=== PATIENT | female | born 1940 | race African-American/Black ===

== ENCOUNTER 2024-04-26 22:51 | Inpatient (IN) | payer OTHER, MEDICAID ==
[~2024-04-26] VITALS: Ht 167.6 cm; Wt 142.1 kg
[2024-04-26] MEDS: ASPirin 81 mg TAB PO ONE (23:00)
--- NOTE | 2024-04-26 23:20 | ED.PDOC ---
History of Present Illness HPI Comments 83-year-old female who came to ER via EMS for chest pains. Patient does have history of diabetes and [place]. Patient went to a [facility] earlier today due to hypoglycemia. Patient was managed and diagnostics were done. Noted the patient's troponin levels were elevated so patient was transferred to this institution for further evaluation management. Patient denies any chest pains at this time of care. Chief Complaint: Chest Pain Time Seen by MD: 23:19 Reviewed Notes: Radiology Specialist Notes Information Source: Patient, Emergency Med Personnel Mode of Arrival: EMS Severity: Moderate Timing: Hours Duration: Since onset Prehospital treatment: None Past Medical History PAST MEDICAL HISTORY: DM, [place] Surgical History: Denies all surgeries RESIDENCE MANAGER History: Denies all RESIDENCE MANAGER Hx Family History Family History: Reviewed,noncontributory to illness Social History Smoker: Non-Smoker Alcohol: Denies ETOH Use Drugs: Denies Drug Use Lives In: Home Constitutional: reports: weakness; denies: chills, diaphoresis, fatigue, fever, malaise, sweats, others EENTM: denies: blurred vision, double vision, ear bleeding, ear discharge, ear drainage, ear pain, ear ringing, eye pain, eye redness, hearing loss, mouth pain, mouth swelling, nasal discharge, nose bleeding, nose congestion, nose pain, photophobia, tearing, throat pain, throat swelling, voice changes, others Respiratory: denies: cough, hemoptysis, orthopnea, SOB at rest, shortness of breath, SOB with excertion, stridor, wheezing, others Cardiovascular: denies: chest pain, dizzy spells, diaphoresis, Dyspnea on exertion, edema, irregular heart beat, left arm pain, lightheadedness, palpitations, PND, syncope, others Gastrointestinal: denies: abdomen distended, abdominal pain, blood streaked bowels, constipated, diarrhea, dysphagia, difficulty swallowing, hematemesis, melena, nausea, poor appetite, poor fluid intake, rectal bleeding, rectal pain, vomiting, others Genitourinary: denies: abnormal vagina bleeding, burning, dyspareunia, dysuria, flank pain, frequency, hematuria, incontinence, pain, , vagina discharge, urgency, others Neurological: denies: dizziness, fainting, headache, left sided numbness, left sided weakness, numbness, paresthesia, pre-existing deficit, right sided numbness, right sided weakness, seizure, speech problems, tingling, tremors, weakness, others Musculoskeletal: denies: back pain, gout, joint pain, joint swelling, muscle pain, muscle stiffness, neck pain, others Integumetry: denies: bruises, change in color, change in hair/nails, dryness, laceration, lesions, lumps, rash, wounds, others Allergic/Immunocompromised: denies: Difficulty Healing, Frequent Infections, Hives, Itching, others Hematologic/Lymphatic: denies: anemia, blood clots, easy bleeding, easy bruising, swollen glands, others Endocrine: denies: excessive hunger, excessive sweating, excessive thirst, excessive urination, flushing, intolerance to cold, intolerance to heat, unexplained weight gain, unexplained weight loss, others Psychiatric: denies: anxiety, bipolar disorder, depression, hopeless, panic disorder, schizophrenia, sleepless, suicidal, others Physical Exam General Appearance: No Apparent Distress, Normal HEENT: Normal ENT Inspection, Pharynx Normal, TMs Normal Neck: Full Range of Motion, Non-Tender, Normal, Normal Inspection Respiratory: Chest Non-Tender, Lungs Clear, No Accessory Muscle Use, No Respiratory Distress, Normal Breath Sounds Cardiovascular: No Edema, No JVD, No Murmur, No Gallop, Normal Peripheral Pulses, Regular Rate/Rhythm Breast Exam: Deferred Gastrointestinal: No Organomegaly, Non Tender, No Pulsatile Mass, Normal Bowel Sounds, Soft Genitalia: Deferred Pelvic: Deferred Rectal: Deferred Extremities: No calf tenderness, Normal capillary refill, Normal inspection, Normal range of motion, Non-tender, No pedal edema Musculoskeletal : Apperance: Normal Neurologic: Alert, research staff member II-XII nml as Tested, No Motor Deficits, Normal Affect, Normal Mood, No Sensory Deficits Cerebellar Function: Normal Reflexes: Normal Skin: Dry, Normal Color, Warm Lymphatic: No Adenopathy Was a procedure done? Was a procedure done?: No EKG EKG : Pulse Rate (adult): 54 Hypertrophy: LVH Comments Prolonged QT interval Differential Dx Considerations may include: Anemia, electrolyte imbalance, NSTEMI, hypoglycemia X-Ray, Labs, Meds, VS Vital Signs Date Time Temp Pulse Resp B/P (MAP) Pulse Ox O2 Delivery O2 Flow Rate FiO2 04/26/24 23:53 98.8 50 15 156/34 (74) 93 98.8 04/26/24 23:20 54 04/26/24 22:51 54 04/26/24 22:51 98.6 54 16 162/80 (107) 92 Lab Test 04/26/24 23:25 Range/Units White Blood Count 3.5 L 4.4-10.8 10^3/uL Red Blood Count 3.05 L 4.0-5.20 10^6/uL Hemoglobin 11.0 L 12.2-16.2 g/dL Hematocrit 32.4 L 36.0-46.0 % Mean Corpuscular Volume 106.5 H 80.0-100.0 fL Mean Corpuscular Hemoglobin 36.1 H 28.0-32.0 pg Mean Corpuscular Hemoglobin Concent 33.9 32.0-36.0 g/dL Red Cell Distribution Width 22.7 H 11.8-14.3 % Platelet Count 145 140-450 10^3/uL Mean Platelet Volume 7.5 6.9-10.8 fL Neutrophils (%) (Auto) 57.3 37.0-80.0 % Lymphocytes (%) (Auto) 35.2 10.0-50.0 % Monocytes (%) (Auto) 5.9 0.0-12.0 % Eosinophils (%) (Auto) 1.2 0.0-7.0 % Basophils (%) (Auto) 0.4 0.0-2.0 % Neutrophils # (Auto) 2.0 1.6-8.6 10 ^3/uL Lymphocytes # (Auto) 1.2 0.4-5.4 10 ^3/uL Monocytes # (Auto) 0.2 0-1.3 10 ^3/uL Eosinophils # (Auto) 0 0-0.8 10 ^3/uL Basophils # (Auto) 0 0-0.2 10 ^3/uL Nucleated Red Blood Cells 0.8 % Prothrombin Time 11.3 9.3-11.8 sec Prothrombin Time INR 1.07 0.9-1.15 Activated Partial Thromboplast Time 28.3 24.5-34.5 SEC Sodium Level 145 136-145 mmol/L Potassium Level 3.2 L 3.5-5.1 mmol/L Chloride Level 110 H 98-107 mmol/L Carbon Dioxide Level 24 20-31 mmol/L Anion Gap 11 5-15 Blood Urea Nitrogen 13 9-23 mg/dL Creatinine 1.22 H 0.550-1.02 mg/dL Glomerular Filtration Rate Calc 44 >90 mL/min BUN/Creatinine Ratio 10.7 10.0-20.0 Serum Glucose 58 L 74-106 mg/dL Calcium Level 10.0 8.7-10.4 mg/dL Total Bilirubin 0.8 0.2-1.0 mg/dL Aspartate Amino Transferase (AST) 16 13-40 U/L Alanine Aminotransferase (ALT) 17 7-40 U/L Alkaline Phosphatase 64 46-116 U/L Troponin I High Sensitivity 124 *H </=34 ng/L B-Type Natriuretic Peptide Pending Total Protein 6.8 5.7-8.2 g/dL Albumin 4.2 3.2-4.8 g/dL Time of 1ST Reevaluation: 23:15 Reevaluation 1ST: Unchanged Time of 2ND Reevaluation: 00:14 Reevaluation 2ND: Unchanged Patient Education/Counseling: Diagnosis, Treatment Family Education/Counseling: No Family Present Departure 1 Departure Time of Disposition: 00:14 Impression: Primary Impression: Acute coronary syndrome Additional Impression: Type 2 diabetes mellitus with hypoglycemia Disposition: ADMITTED INPATIENT Admit to: Tele Condition: Guarded Critical Care Note Critical Care Time?: Yes (35 min-critical care time only) Critical care comment: Total critical care time: Approximately 36 minutes Due to a high probability of clinically significant, life threatening deterioration, the patient required my highest level of preparedness to intervene emergently and I personally spent this critical care time directly and personally managing the patient. This critical care time included obtaining a history; examining the patient; pulse oximetry; ordering and review of studies; arranging urgent treatment with development of a management plan; evaluation of patient's response to treatment; frequent reassessment; and, discussions with other providers. This critical care time was performed to assess and manage the high probability of imminent, life-threatening deterioration that could result in multi-organ failure. It was exclusive of separately billable procedures and treating other patients. Stability Stability form required: No Heart Score Heart Score: Heart Score Response (Comments) Value History Moderate Suspicious 1 EKG Repolarization Disturb 1 Age >65 2 Risk Factors >3 or Hx ASHD 2 Troponin 1-2 x's Normal limit 1 Total 7 I personally scribed for JENNIFER MOODY MD ([email or web address]) on 04/26/24 at 23:20. Electronically submitted by Junior Fermin ([email or web address]). JENNIFER MOODY MD Apr 26, 2024 23:20
[2024-04-26 23:31] LABS: Basophils # (auto) 0 10 ^3/uL (0-0.2); Eosinophils # (auto) 0 10 ^3/uL (0-0.8); Monocytes # (auto) 0.2 10 ^3/uL (0-1.3)
--- NOTE | 2024-04-26 23:33 | ECG ---
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
[2024-04-26 23:34] LABS: Basophils % (auto) 0.4 % (0.0-2.0); Eosinophils % (auto) 1.2 % (0.0-7.0); Hematocrit 32.4 % (36.0-46.0); Lymphocytes # (auto) 1.2 10 ^3/uL (0.4-5.4); Lymphocytes % (auto) 35.2 % (10.0-50.0); Mean Corpuscular Hemoglobin 36.1 pg (28.0-32.0); Mean Corpuscular Hgb Conc. 33.9 g/dL (32.0-36.0); Mean Corpuscular Volume 106.5 fL (80.0-100.0); Monocytes % (auto) 5.9 % (0.0-12.0); Neutrophils % (auto) 57.3 % (37.0-80.0); Nucleated Red Blood Cells % 0.8 %; Platelet Count (auto) 145 10^3/uL (140-450); Red Blood Cells 3.05 10^6/uL (4.0-5.20); Red Cell Distribution Width 22.7 % (11.8-14.3); White Blood Cell 3.5 10^3/uL (4.4-10.8)
[2024-04-26 23:47] LABS: INR 1.07 (0.9-1.15); Partial Thromboplastin Time 28.3 SEC (24.5-34.5); Prothrombin Time 11.3 sec (9.3-11.8)
[2024-04-26 23:50] LABS: Alanine Aminotransferase 17 U/L (7-40); Albumin 4.2 g/dL (3.2-4.8); Alkaline Phosphatase 64 U/L (46-116); Anion Gap 11 (5-15); Aspartate Aminotransferase 16 U/L (13-40); Bilirubin, Total 0.8 mg/dL (0.2-1.0); Carbon Dioxide 24 mmol/L (20-31); Total Protein 6.8 g/dL (5.7-8.2)
[2024-04-26 23:54] LABS: Chloride 110 mmol/L (98-107); Glucose 58 mg/dL (74-106); Potassium 3.2 mmol/L (3.5-5.1); Sodium 145 mmol/L (136-145)
--- NOTE | 2024-04-26 23:59 | DVH ---
CHEST RADIOGRAPH Indication: weakness Technique: Single frontal view of the chest was obtained Comparison: None Findings/ IMPRESSION: Low lung volumes with bronchovascular crowding. Findings may also be suggestive of mild pulmonary alexis ma. No pneumothorax. No pleural effusions.
[2024-04-27 00:03] LABS: BUN/Creatinine Ratio 10.7 (10.0-20.0); Blood Urea Nitrogen 13 mg/dL (9-23)
[2024-04-27 01:40] VITALS: PULSE 50; RESP 15; O2SAT 91
--- NOTE | 2024-04-27 04:29 | DVHHP2 ---
History of Present Illness Reason for Visit: Hypoglycemia History of Present Illness 83-year-old female presented to outside facility with complaints of hypoglycemia and altered mental status. On arrival patient was noted to be hypoglycemic in the 40s in the heart rate in the 40s as well. Patient reports heart rate being in the 40s for the past one-week. She associates symptoms of mild dizziness and shortness for breath. Denies any chest pain. No nausea or vomiting. No other acute complaints reported. Past Medical History CVA, diabetes mellitus, cancer, congestive heart failure and CA Past Surgical History None Family History Noncontributory Smoke: No ALCOHOL: none Drugs: None Lives: with Family Review of Systems Review of Systems Review of systems are currently negative otherwise addressed in HPI. Exam Vital Signs Vital Signs Date Time Temp Pulse Resp B/P (MAP) Pulse Ox O2 Delivery O2 Flow Rate FiO2 04/27/24 03:01 48 17 167/53 (91) 97 04/27/24 01:40 Nasal Cannula* 2 28 04/26/24 23:53 98.8 98.8 Exam Gen: 83-year-old female in mild distress Skin: Warm, dry, normal color and texture, no rash. HEENT: Normocephalic atraumatic, mucous membranes moist and pink. Neck: Cervical and supraclavicular nodes normal without enlargement, trachea is midline, thyroid gland is normal without masses. Pulmonary: Clear to auscultation and percussion bilaterally. Cardiac: Sinus bradycardia Abdomen: Soft, nontender, nondistended, bowel sounds present all 4 quadrants, no guarding, no rigidity, no organomegaly. Extremities: No cyanosis, clubbing, no edema Neuro: Cranial nerves II through XII grossly intact, normal affect and speech, no focal motor deficits. Labs/Xrays ORDERING PHYSICIAN: JENNIFER MOODY MD PROCEDURE(s): CXRP - CHEST PORTABLE REASON: weakness ORDER NUMBER(s): [id number], ACCESSION NUMBER(s): [id number] CHEST RADIOGRAPH Indication: weakness Technique: Single frontal view of the chest was obtained Comparison: None Findings/ IMPRESSION: Low lung volumes with bronchovascular crowding. Findings may also be suggestive of mild pulmonary edema. No pneumothorax. No pleural effusions. Labs Test 04/27/24 02:23 04/26/24 23:25 Range/Units Troponin I High Sensitivity 113 *H </=34 ng/L White Blood Count 3.5 L 4.4-10.8 10^3/uL Red Blood Count 3.05 L 4.0-5.20 10^6/uL Hemoglobin 11.0 L 12.2-16.2 g/dL Hematocrit 32.4 L 36.0-46.0 % Mean Corpuscular Volume 106.5 H 80.0-100.0 fL Mean Corpuscular Hemoglobin 36.1 H 28.0-32.0 pg Mean Corpuscular Hemoglobin Concent 33.9 32.0-36.0 g/dL Red Cell Distribution Width 22.7 H 11.8-14.3 % Platelet Count 145 140-450 10^3/uL Mean Platelet Volume 7.5 6.9-10.8 fL Neutrophils (%) (Auto) 57.3 37.0-80.0 % Lymphocytes (%) (Auto) 35.2 10.0-50.0 % Monocytes (%) (Auto) 5.9 0.0-12.0 % Eosinophils (%) (Auto) 1.2 0.0-7.0 % Basophils (%) (Auto) 0.4 0.0-2.0 % Neutrophils # (Auto) 2.0 1.6-8.6 10 ^3/uL Lymphocytes # (Auto) 1.2 0.4-5.4 10 ^3/uL Monocytes # (Auto) 0.2 0-1.3 10 ^3/uL Eosinophils # (Auto) 0 0-0.8 10 ^3/uL Basophils # (Auto) 0 0-0.2 10 ^3/uL Nucleated Red Blood Cells 0.8 % Prothrombin Time 11.3 9.3-11.8 sec Prothrombin Time INR 1.07 0.9-1.15 Activated Partial Thromboplast Time 28.3 24.5-34.5 SEC Sodium Level 145 136-145 mmol/L Potassium Level 3.2 L 3.5-5.1 mmol/L Chloride Level 110 H 98-107 mmol/L Carbon Dioxide Level 24 20-31 mmol/L Anion Gap 11 5-15 Blood Urea Nitrogen 13 9-23 mg/dL Creatinine 1.22 H 0.550-1.02 mg/dL Glomerular Filtration Rate Calc 44 >90 mL/min BUN/Creatinine Ratio 10.7 10.0-20.0 Serum Glucose 58 L 74-106 mg/dL Calcium Level 10.0 8.7-10.4 mg/dL Total Bilirubin 0.8 0.2-1.0 mg/dL Aspartate Amino Transferase (AST) 16 13-40 U/L Alanine Aminotransferase (ALT) 17 7-40 U/L Alkaline Phosphatase 64 46-116 U/L B-Type Natriuretic Peptide 399.84 0-100 pg/mL Total Protein 6.8 5.7-8.2 g/dL Albumin 4.2 3.2-4.8 g/dL Assessment/Plan Assessment/Plan Assessment Metabolic encephalopathy Hypoglycemia Bradycardia CHF Plan Admit the patient to telemetry to the hospitalist Cardiology consultation Echocardiogram pending Resume home medications Continue treatment per orders Plan discussed with: Patient My Orders Orders - GINA ERVIN M AGACNP Procedure Category Date Status Time Glucagon PHA 04/27/24 Transmitted Hydrochloride (Rdna) 04:30 Losartan Tablet PHA 04/27/24 Transmitted (Cozaar Tablet) 10:00 Amlodipine Tablet PHA 04/27/24 Transmitted (Norvasc Tablet) 10:00 Furosemide Tablet PHA 04/27/24 Transmitted (Lasix Tablet) 10:00 Atorvastatin (Lipitor) PHA 04/27/24 Transmitted 22:00 * Cardiology Consult CONS 04/27/24 Transmitted 04:18 Basic Metabolic Panel LAB 04/28/24 Verified 04:00 Consistent DIET 04/27/24 Transmitted Carb(Ccho)Diabetes Breakfast Glucose Blood PHA 04/27/24 Transmitted (Accu-Chek Comfort 08:00 Mild Sliding Scale PHA 04/27/24 Transmitted 08:00 Dextrose 50% Syringe PHA 04/27/24 Transmitted 04:30 Admit ADMIT 04/27/24 Transmitted 04:18 Ondansetron Hcl PHA 04/27/24 Transmitted (Zofran) 04:30 Enoxaparin Sodium PHA 04/27/24 Transmitted (Lovenox) 10:00 Echo 2d Mode Cardiac US 04/27/24 Transmitted DOP 04:18 Condition: Fair MIRZA 04/27/24 Transmitted 04:18 Acetaminophen Tablet PHA 04/27/24 Transmitted (Tylenol Tablet) 04:30 Bedrest With Bathroom MIRZA 04/27/24 Transmitted Privileg 04:18 Nitroglycerin PHA 04/27/24 Transmitted Sublingual (Ntrostat 04:30 Morphine Sulfate [facility] 04/27/24 Transmitted Injection 04:30 Stat Ekg For Chest [facility] 04/27/24 Transmitted Pain 04:18 Notify Md Of Changes [facility] 04/27/24 Transmitted From Base 04:18 Electronic Page Makeup System Operator For [facility] 04/27/24 Transmitted 24 Hours 04:18 Emergency Dysrhythmia [facility] 04/27/24 Transmitted Protocol 04:18 Rhythm Strips Once [facility] 04/27/24 Transmitted Every Shift 04:18 Oxygen By Nasal RT 04/27/24 Transmitted Cannula 04:18 Potassium Er Tablet [facility] 04/27/24 Transmitted (Klor-Con Tablet) 04:30 Aspirin Tablet [facility] 04/27/24 Transmitted 10:00 Date of Service: Apr 27, 2024 Billing Provider: GINA ERVIN Common Visit Codes: [id number] INP/OBS CARE (HIGH) GINA ERVIN Apr 27, 2024 04:29
[2024-04-27] MEDS: GLUCAGON EMERG KIT 1mg/1ml IV ONE (04:30)
[2024-04-27] MEDS ORDERED: DEXTROSE (50%) 50ML SYRG IV PRN (04:30)
[2024-04-27] MEDS ORDERED: NITROGLYCERIN 0.4 MG SL TAB SL PRN (04:30)
[2024-04-27] MEDS ORDERED: MORPHINE SULFATE INJ 2 MG/ml SYRG IV PRN (04:30)
[2024-04-27] MEDS ORDERED: ACETAMINOPHEN 325 MG TAB PO PRN (04:30)
[2024-04-27] MEDS: InsuLIN REG 1unit/0.01ml Soln (100units/ml) SC SCH (08:00)
[2024-04-27 09:45] LABS: Basophils # (auto) 0 10 ^3/uL (0-0.2); Eosinophils # (auto) 0 10 ^3/uL (0-0.8); Hematocrit 29.8 % (36.0-46.0); Lymphocytes # (auto) 0.8 10 ^3/uL (0.4-5.4); Monocytes # (auto) 0.2 10 ^3/uL (0-1.3); Neutrophils # (auto) 1.5 10 ^3/uL (1.6-8.6); White Blood Cell 2.5 10^3/uL (4.4-10.8)
[2024-04-27 09:47] LABS: Basophils % (auto) 0.6 % (0.0-2.0); Eosinophils % (auto) 1.6 % (0.0-7.0); Lymphocytes % (auto) 31.9 % (10.0-50.0); Mean Corpuscular Hemoglobin 36.1 pg (28.0-32.0); Mean Corpuscular Hgb Conc. 33.7 g/dL (32.0-36.0); Mean Corpuscular Volume 107.1 fL (80.0-100.0); Monocytes % (auto) 7.7 % (0.0-12.0); Neutrophils % (auto) 58.2 % (37.0-80.0); Nucleated Red Blood Cells % 1.1 %; Platelet Count (auto) 136 10^3/uL (140-450); Red Blood Cells 2.79 10^6/uL (4.0-5.20); Red Cell Distribution Width 22.3 % (11.8-14.3)
[2024-04-27 09:59] VITALS: BP 112/82; PULSE 53; RESP 19; TEMP 98.3; O2SAT 96
[2024-04-27] MEDS ORDERED: ASPirin 81 mg TAB PO SCH (10:00)
[2024-04-27 10:02] LABS: Sodium 143 mmol/L (136-145)
[2024-04-27 10:03] LABS: Anion Gap 8 (5-15); Calcium 9.8 mg/dL (8.7-10.4); Carbon Dioxide 25 mmol/L (20-31)
[2024-04-27 10:08] LABS: BUN/Creatinine Ratio 6.3 (10.0-20.0); Glucose 76 mg/dL (74-106)
[2024-04-27 10:09] LABS: Magnesium 2.1 mg/dL (1.6-2.6)
[2024-04-27 10:27] LABS: Blood Urea Nitrogen 7 mg/dL (9-23); Chloride 110 mmol/L (98-107)
[2024-04-27] MEDS: ACCU-CHEK COMFORT CURVE STRIP VI SCH (10:46)
[2024-04-27] MEDS: POTASSIUM CHL 20 Meq TABLET PO ONE (10:55)
[2024-04-27] MEDS: amLODIPine BESYLATE 5 MG TAB PO SCH (10:57)
[2024-04-27] MEDS: FUROSEMIDE 20 MG TAB PO SCH (10:57)
[2024-04-27] MEDS: ENOXAPARIN SOD 40 MG/0.4 ML SYRINGE SC SCH (10:59)
[2024-04-27] MEDS: LOSARTAN POTASSIUM 50 MG TAB PO SCH (10:59)
[2024-04-27 11:15] LABS: LDL Cholesterol 42 mg/dL (< 100); Triglycerides 73 mg/dL (< 150)
[2024-04-27 11:16] LABS: Cholesterol 94 mg/dL (< 200)
[2024-04-27 11:47] LABS: HDL Cholesterol 32 mg/dL (40-59)
--- NOTE | 2024-04-27 12:28 | DVHCONRES ---
Date Seen: Apr 27, 2024 Resident Creating Document: ALEXUSVIDAL RESIDENT Reason for Consultation Bradycardia History of Present Illness AZ ISAAC, is a 83-year-old female with a PMH of CVA, type 2 DM, CHF, CAD, PTCA x1 ILYA transferred from [facility] to ED with the chief complaints of hypoglycemia and altered mental status. Patient is poor historian, her granddaughter reported yesterday patient has been very dizzy, altered, checked glucose level showed 40s and patient does reported shortness of breath. On my assessment patient denies fever, nausea, vomiting, chest pain, diarrhea, diaphoresis and other acute associated symptoms. Patient does have a history of CHF since many years. Past Medical History CVA, type 2 DM, CHF, CAD, PTCA x1 ILYA Past Surgical History PTCA Family History Reviewed, noncontributory Social History Lives with a granddaughter. Denies smoking, alcohol and other drug abuse Allergies: Coded Allergies: Aspirin (Verified Allergy, Unknown, 04/27/24) Codeine (Verified Allergy, Unknown, 04/27/24) Sulfa Antibiotics (Verified Allergy, Unknown, 04/27/24) Current Medications Current Medications Medications (Trade) Dose Ordered Sig/Bree Route PRN Reason Start Time Stop Time Status Last Admin Losartan Potassium (Cozaar Tablet) 50 mg DAILY PO 04/27/24 10:00 04/27/24 10:59 Amlodipine Besylate (Norvasc Tablet) 10 mg DAILY PO 04/27/24 10:00 04/27/24 10:57 Furosemide (Lasix Tablet) 20 mg DAILY PO 04/27/24 10:00 04/27/24 10:57 Atorvastatin Calcium (Lipitor) 80 mg HS PO 04/27/24 22:00 Diagnostic Test (Pha) (Accu-Chek Comfort Curve T) 1 strip IQ4HR 04/27/24 08:00 04/27/24 10:46 Insulin Human Regular (InsuLIN R) IQ4HR SC 04/27/24 08:00 Dextrose 50 ml UD PRN IV Blood Sugar LESS THAN 60 04/27/24 04:30 Ondansetron HCl (Zofran) 4 mg Q4HP PRN IV NAUSEA / VOMITING 04/27/24 04:30 Enoxaparin Sodium (Lovenox) 40 mg DAILY SC 04/27/24 10:00 04/27/24 10:59 Acetaminophen (Tylenol Tablet) 650 mg Q6HP PRN PO PAIN SCALE 1-3 OR TEMP>100.4 04/27/24 04:30 Nitroglycerin (Ntrostat Sublingual) 0.4 mg Q5MINP PRN SL FOR CHEST PAIN 04/27/24 04:30 Morphine Sulfate 2 mg Q30M PRN IV FOR CHEST PAIN 04/27/24 04:30 Aspirin 162 mg DAILY PO 04/27/24 10:00 UNV Review of Systems Patient seen and examined at the bedside. Reported no active complaints currently on 4 L oxygen NC. Vital Signs Vital Signs Date Time Temp Pulse Resp B/P (MAP) Pulse Ox O2 Delivery O2 Flow Rate FiO2 04/27/24 10:59 112/82 04/27/24 09:59 Nasal Cannula* 2 28 04/27/24 08:00 47 04/27/24 06:00 14 95 04/26/24 23:53 98.8 98.8 Physical Exam Pt is lying on bed General Appearance: Alert, Oriented X3, Cooperative, mpderate distress HEENT: Atraumatic, Mucous membranes moist/pink Respiratory: Clear to auscultation, Normal air movement, crackles Cardiovascular: Regular rate, Normal S1, Normal S2, No murmurs Abdominal: Active bowel sounds, Soft, no distention, no tenderness Extremities: 1+ edema, Normal pulses, No tenderness/swelling Skin: No Significant rash, except past surgical scars Neuro: Normal speech, sensorimotor deficits none Psych/Mental Status: Mental status NL, Mood NL Labs/Diagnostic Data Labs Test 04/27/24 10:43 04/27/24 09:30 04/27/24 02:23 04/26/24 23:25 Range/Units POC Glucose 105 70-106 mg/dl White Blood Count 2.5 L 4.4-10.8 10^3/uL Red Blood Count 2.79 L 4.0-5.20 10^6/uL Hemoglobin 10.0 L 12.2-16.2 g/dL Hematocrit 29.8 L 36.0-46.0 % Mean Corpuscular Volume 107.1 H 80.0-100.0 fL Mean Corpuscular Hemoglobin 36.1 H 28.0-32.0 pg Mean Corpuscular Hemoglobin Concent 33.7 32.0-36.0 g/dL Red Cell Distribution Width 22.3 H 11.8-14.3 % Platelet Count 136 L 140-450 10^3/uL Mean Platelet Volume 7.3 6.9-10.8 fL Neutrophils (%) (Auto) 58.2 37.0-80.0 % Lymphocytes (%) (Auto) 31.9 10.0-50.0 % Monocytes (%) (Auto) 7.7 0.0-12.0 % Eosinophils (%) (Auto) 1.6 0.0-7.0 % Basophils (%) (Auto) 0.6 0.0-2.0 % Neutrophils # (Auto) 1.5 L 1.6-8.6 10 ^3/uL Lymphocytes # (Auto) 0.8 0.4-5.4 10 ^3/uL Monocytes # (Auto) 0.2 0-1.3 10 ^3/uL Eosinophils # (Auto) 0 0-0.8 10 ^3/uL Basophils # (Auto) 0 0-0.2 10 ^3/uL Nucleated Red Blood Cells 1.1 % Sodium Level 143 136-145 mmol/L Potassium Level 3.0 L 3.5-5.1 mmol/L Chloride Level 110 H 98-107 mmol/L Carbon Dioxide Level 25 20-31 mmol/L Anion Gap 8 5-15 Blood Urea Nitrogen 7 L 9-23 mg/dL Creatinine 1.11 H 0.550-1.02 mg/dL Glomerular Filtration Rate Calc 49 >90 mL/min BUN/Creatinine Ratio 6.3 L 10.0-20.0 Serum Glucose 76 74-106 mg/dL Hemoglobin A1c 5.8 H <5.7 % A1C Lactic Acid Level 1.2 0.4-2.0 mmol/L Calcium Level 9.8 8.7-10.4 mg/dL Magnesium Level 2.1 1.6-2.6 mg/dL Triglycerides Level 73 < 150 mg/dL Cholesterol Level 94 < 200 mg/dL LDL Cholesterol 42 < 100 mg/dL HDL Cholesterol 32 L 40-59 mg/dL Thyroid Stimulating Hormone (TSH) 2.31 0.55-4.78 uIU/mL Troponin I High Sensitivity 113 *H </=34 ng/L Prothrombin Time 11.3 9.3-11.8 sec Prothrombin Time INR 1.07 0.9-1.15 Activated Partial Thromboplast Time 28.3 24.5-34.5 SEC Total Bilirubin 0.8 0.2-1.0 mg/dL Aspartate Amino Transferase (AST) 16 13-40 U/L Alanine Aminotransferase (ALT) 17 7-40 U/L Alkaline Phosphatase 64 46-116 U/L B-Type Natriuretic Peptide 399.84 0-100 pg/mL Total Protein 6.8 5.7-8.2 g/dL Albumin 4.2 3.2-4.8 g/dL Assessment Asymptomatic sinus bradycardia To rule out structural heart disease Uncontrolled hypertension Acute hypoxic respiratory failure unspecified NSTEMI type 2 likely due to above Hypokalemia Metabolic encephalopathy Hypoglycemia Morbid obesity Plan/Recommendation We will continue with the following plan/recommendations (Dr. Theodore): Continue telemetry monitoring No significant AV block or pauses noted on EKG Avoid AV jose blockers Correct electrolyte imbalance Echocardiogram to evaluate cardiac function Lasix 40 mg IV b.i.d. Lipid lowering agent BP control measures DVT prophylaxis, Lovenox for now Aggressive risk factor modification Discussed with Dr. Chung, Plan discussed with: Patient Visit Coding Cardiology RES Date of Service: Apr 27, 2024 Billing Provider: GIFTY CHUNG MD Cardiology Common Codes: [id number] INP/OBS CARE (Mod) VIDAL VAUGHAN RESIDENT Apr 27, 2024 12:28
[2024-04-27 13:00] VITALS: BP 112/82; PULSE 79; RESP 17; TEMP 97.7; O2SAT 96
[2024-04-27] MEDS ORDERED: AZITHROMYCIN 500MG/ 250ML 250 ML IV ONE (13:15)
--- NOTE | 2024-04-27 14:24 | ECG ---
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
[2024-04-27] MEDS: FUROSEMIDE 100 MG/10ML VIAL IV ONE (15:10)
[2024-04-27] MEDS: MAALOX PLUS or MAALOX 30 ML PO ONE (15:10)
[2024-04-27] MEDS: cefTRIAXone 1GM/50ML D5W 50 ML IV ONE (15:10)
[2024-04-27] MEDS: METOCLOPRAMIDE HCL 5MG/ml INJ 2ml VIAL IV ONE (15:10)
[2024-04-27 15:47] LABS: Potassium 4.7 mmol/L (3.5-5.1); Sodium 143 mmol/L (136-145)
[2024-04-27 15:48] LABS: Anion Gap 5 (5-15); Calcium 10.2 mg/dL (8.7-10.4); Carbon Dioxide 27 mmol/L (20-31)
[2024-04-27 15:53] LABS: BUN/Creatinine Ratio 6.7 (10.0-20.0)
[2024-04-27 15:54] LABS: Blood Urea Nitrogen 7 mg/dL (9-23); Chloride 111 mmol/L (98-107); Glucose 109 mg/dL (74-106)
[2024-04-27 16:45] VITALS: BP 120/80; PULSE 72; RESP 19; TEMP 97.7; O2SAT 94
[2024-04-27] MEDS ORDERED: LEVO500T91 PO (17:14)
[2024-04-27] MEDS ORDERED: ZOFR4T PO (17:14)
--- NOTE | 2024-04-27 17:20 | DVHDS2 ---
Discharge Summary Date of Admission Apr 27, 2024 at 04:18 Date of Discharge: Apr 27, 2024 Labs/Diagnostic Data: Laboratory Results Test 04/27/24 16:54 04/27/24 15:00 04/27/24 09:30 04/27/24 02:23 POC Glucose 113 mg/dl (70-106) Sodium Level 143 mmol/L (136-145) Potassium Level 4.7 mmol/L (3.5-5.1) Chloride Level 111 mmol/L (98-107) Carbon Dioxide Level 27 mmol/L (20-31) Anion Gap 5 (5-15) Blood Urea Nitrogen 7 mg/dL (9-23) Creatinine 1.04 mg/dL (0.550-1.02) Glomerular Filtration Rate Calc 53 mL/min (>90) BUN/Creatinine Ratio 6.7 (10.0-20.0) Serum Glucose 109 mg/dL (74-106) Calcium Level 10.2 mg/dL (8.7-10.4) White Blood Count 2.5 10^3/uL (4.4-10.8) Red Blood Count 2.79 10^6/uL (4.0-5.20) Hemoglobin 10.0 g/dL (12.2-16.2) Hematocrit 29.8 % (36.0-46.0) Mean Corpuscular Volume 107.1 fL (80.0-100.0) Mean Corpuscular Hemoglobin 36.1 pg (28.0-32.0) Mean Corpuscular Hemoglobin Concent 33.7 g/dL (32.0-36.0) Red Cell Distribution Width 22.3 % (11.8-14.3) Platelet Count 136 10^3/uL (140-450) Mean Platelet Volume 7.3 fL (6.9-10.8) Neutrophils (%) (Auto) 58.2 % (37.0-80.0) Lymphocytes (%) (Auto) 31.9 % (10.0-50.0) Monocytes (%) (Auto) 7.7 % (0.0-12.0) Eosinophils (%) (Auto) 1.6 % (0.0-7.0) Basophils (%) (Auto) 0.6 % (0.0-2.0) Neutrophils # (Auto) 1.5 10 ^3/uL (1.6-8.6) Lymphocytes # (Auto) 0.8 10 ^3/uL (0.4-5.4) Monocytes # (Auto) 0.2 10 ^3/uL (0-1.3) Eosinophils # (Auto) 0 10 ^3/uL (0-0.8) Basophils # (Auto) 0 10 ^3/uL (0-0.2) Nucleated Red Blood Cells 1.1 % Hemoglobin A1c 5.8 % A1C (<5.7) Lactic Acid Level 1.2 mmol/L (0.4-2.0) Magnesium Level 2.1 mg/dL (1.6-2.6) Triglycerides Level 73 mg/dL (< 150) Cholesterol Level 94 mg/dL (< 200) LDL Cholesterol 42 mg/dL (< 100) HDL Cholesterol 32 mg/dL (40-59) Thyroid Stimulating Hormone (TSH) 2.31 uIU/mL (0.55-4.78) Troponin I High Sensitivity 113 ng/L (</=34) Test 04/26/24 23:25 Prothrombin Time 11.3 sec (9.3-11.8) Prothrombin Time INR 1.07 (0.9-1.15) Activated Partial Thromboplast Time 28.3 SEC (24.5-34.5) Total Bilirubin 0.8 mg/dL (0.2-1.0) Aspartate Amino Transferase (AST) 16 U/L (13-40) Alanine Aminotransferase (ALT) 17 U/L (7-40) Alkaline Phosphatase 64 U/L (46-116) B-Type Natriuretic Peptide 399.84 pg/mL (0-100) Total Protein 6.8 g/dL (5.7-8.2) Albumin 4.2 g/dL (3.2-4.8) Other Laboratory Tests 04/27/24 15:00 04/27/24 09:30 Brief Hx & Hospital Course: HPI: 83-year-old female with a PMH of CVA, type 2 DM, CHF, CAD, PTCA x1 [facility] transferred from [facility] to ED with the chief complaints of hypoglycemia and altered mental status. Patient is poor historian, her granddaughter reported yesterday patient has been very dizzy, altered, checked glucose level showed 40s. ROS include dizziness, orthostasis, nausea, decreased PO tolerance (but still taking medications), cough, sore throat, SOB, orthopnea and [place]. Hospital course: patient initially went to [facility] via EMS for AMS, called by granddaughter, found to be hypoglycemic. Initial workup showed hyperglycemia elevated troponins for which patient was transferred to [facility]. In ED, she was noted to be bradycardic in 50s but vitals signs stable, patient endorses that she normally runs at rate of 50s to 60s at her baseline. Also in acute hypoxic respiratory failure requiring up to 4 L nasal cannula oxygen (patient is on home O2 2 L but it has only been using it p.r.n. for shortness of breath). Patient is given dextrose from transferring facility and EMS. Glucose stable on presentation, and hypoglycemia is likely from sulfonylurea adverse effect, hypoglycemic medications held (A1c is 5.8). Patient has stable trend of elevated troponins in 110s. CXR shows pulmonary vascular congestion. BNP elevated at 400. Patient has sinus bradycardia, EKG shows sinus bradycardia with QT prolongation and possible LVH. Echo done shows EF 70%, mild dilation of RV and RA, moderate PH RVSP 50 mmHg. Patient has rales and trace pitting edema, concern for acute on chronic diastolic heart failure and diuresis initiated. There is also leukopenia and symptoms of cough with chills is concerning for pneumonia, antibiotics started with ceftriaxone but avoiding azithromycin due to QT prolongation. Initial concern for ACS in ED, which is ruled out given patient has minimal chest pain, EKG without concerning signs, troponins plateau NSTEMI type 2 from CHF versus pneumonia. Placed on tele to monitor ST changes. Cardiology consulted, we are concern is for hypoxia and volume overload, no significant concern for bradycardia as it is asymptomatic but plan to hold beta- blockers and discharge. COVID/flu rapid are negative. Elevated creatinine 1.2 on admit, likely CONSTANTINE cardiorenal, patient diuresed and creatinine improves towards normal limits. Patient has bloating and GERD symptoms, trial of Reglan and Maalox improves pain, can try Zofran here after. Hypokalemia repleted with p.o. potassium chloride. Patient appears to have pancytopenia mild (leukopenia, developing thrombocytopenia, unknown chronicity of anemia) and also has macrocytosis. Patient will need to follow up with PCP to repeat CBC and follow these levels to determine if hematology follow-up needed. Patient is stable and can be treated with discharge plan below. Diagnosis: asymptomatic bradycardia; hypoglycemia due to medication side effect, sulfonylurea; acute on chronic systolic heart failure, chronic hypoxemic respiratory failure; ; GERD; type 2 NSTEMI; pneumonia g+/g- likely; QT prolongation due to home medication side effect, without arrhythmia or torsades; obesity hypoventilation syndrome likely,; obstructive sleep apnea likely; mild pancytopenia (leukopenia developing thrombocytopenia, unknown chronicity of anemia); macrocytosis; history of CVA,; type 2 diabetes; HFpEF; CAD status post PTCA/ILYA x1 Discharge plan: - start levaquin 750mg for x7days - increase lasix for next 5 days (ie 40mg 2x/day for x5 days, then back to 20mg x2day) - zofran prn for nausea. ok to take malox OTC prn. continue pepcid antacids. - continue use of home oxygen (not only with SOB, continuous 2L NC). - stop glipizide due to risk of hypoglycemia, can use glucose tabs/apple juice for any worsening episodes - stop metoprolol. folllow-up with [facility] to discuss resuming of metoprolol - follow-up wihtin 1 week with PCP doctor . will need repeat CBC CMP to follow resolution of CONSTANTINE and leukopenia. - social consult for transport home and home PT - resume other home medications. Condition at Discharge: Fair Final Diagnosis/Problems List asymptomatic bradycardia; hypoglycemia due to medication side effect, sulfonylurea; acute on chronic systolic heart failure, chronic hypoxemic respiratory failure; ; GERD; pneumonia g+/g- likely; Discharge Disposition: Home Discharge Statement: "Patient was advised to return to the ER or call 911 if any headaches, dizziness, shortness of breath, chest pain, abdominal pain, bleeding, fevers, or worsening of medical condition. Patient was counseled about treatment plan, medications, possible side effects, patientverbalized understanding. All questions were answered to the best of my ability. This discharge took greater then 30 minutes in planning, reviewing documentation, counseling the patient, and discussing with other team members." ASSESSMENT ASSESSMENT Assessment asymptomatic bradycardia; hypoglycemia due to medication side effect, sulfonylurea; acute on chronic systolic heart failure, chronic hypoxemic respiratory failure; ; GERD; type 2 NSTEMI; pneumonia g+/g- likely; QT prolongation due to home medication side effect, without arrhythmia or torsades; obesity hypoventilation syndrome likely,; obstructive sleep apnea likely; mild pancytopenia (leukopenia developing thrombocytopenia, unknown chronicity of anemia); macrocytosis; history of CVA,; type 2 diabetes; HFpEF; CAD status post PTCA/ILYA x1 Date of Service: Apr 27, 2024 Billing Provider: SANDRA SARABIA MD Common Visit Codes: 90400-IQD/OBS DISCH DAY >30min SANDRA SARABIA MD Apr 27, 2024 17:20
--- NOTE | 2024-04-27 19:54 | DVHSR ---
APPROVED REPORT EXAM: LIMITED Two-dimensional and M-mode echocardiogram with Doppler and color Doppler. Blood Pressure: 113/90 mmHg INDICATION Bradycardia RISK FACTORS Obesity: Height: 5' 6", Weight: 299 DIMENSIONS LVDd4.9 (3.8-5.7cm)LA (2D)4.0 (1.9-4.0cm)Aortic Root2.9 (2.0-3.7cm) LVDs3.0 (2.5-4.0cm)LA (MM) (1.9-4.0cm)Aortic Cusp Exc1.7 (1.5-2.0cm) EF (%) 69.0 (55-70%)Rt. Atrium4.3 (1.9-4.0cm)Asc. Aorta cm IVSd1.3 (0.7-1.1cm)RV (D) (1.8-2.4cm) PWd1.2 (0.7-1.1cm) Mitral Valve MitralMitral Stenosis E wave1.40m/sMV Mean GR.mmHg A wave1.00m/sMV Peak GR.mmHg E/A ratio1.42D MVAcm2 Aortic Valve Aortic ValveAortic Stenosis V11.20m/Mahad Mean GR.7mmHg V21.80m/Mahad Peak GR.14mmHg LVOT Diameter2.0 (1.8-2.4cm)Doppler AVA2.09cm2 Pulmonic Valve V20.80m/s Tricuspid Valve TR Velocity3.30m/s [id number] Other Information Quality : Technically LimitedRhythm : Technically limited study due to body habitus. Conclusion LV EJECTION FRACTION OD 70% NORMAL VALVES SLIGHTLY DILATED RV AND RA MODERATE DEGREE PULMONARY HYPERTENSION RVSP OF 50 MM OF HG NO EFFUSION
[2024-04-27 19:59] VITALS: PULSE 59; O2SAT 98
[2024-04-27 21:00] VITALS: BP 184/41; PULSE 57; RESP 24; TEMP 96; O2SAT 93
[2024-04-27] MEDS: ATORVASTATIN 20 MG TAB PO SCH (21:44)
[2024-04-27 22:07] LABS: Rapid Influenza A Negative (Negative); Rapid Influenza B Negative (Negative)
[2024-04-27 22:11] LABS: COVID19 ANTIGEN SOFIA FIA NEGATIVE (NEGATIVE)
[2024-04-28] VITALS (7 sets, daily range): BP systolic 162–177; BP diastolic 48–53; PULSE 51–61; RESP 15–20; TEMP 97.1–98.2; O2SAT 96–98
[2024-04-28] MEDS: ONDANSETRON HCL 4 MG/2 ML VIAL IV PRN (04:49)
[2024-04-28] MEDS: FUROSEMIDE 100 MG/10ML VIAL IV ONE (06:41)
[2024-04-28 06:58] LABS: Basophils # (auto) 0 10 ^3/uL (0-0.2); Eosinophils # (auto) 0 10 ^3/uL (0-0.8); Monocytes # (auto) 0.3 10 ^3/uL (0-1.3); Neutrophils # (auto) 1.4 10 ^3/uL (1.6-8.6); Platelet Count (auto) 150 10^3/uL (140-450); Red Blood Cells 2.86 10^6/uL (4.0-5.20); White Blood Cell 2.8 10^3/uL (4.4-10.8)
[2024-04-28 07:01] LABS: Basophils % (auto) 0.6 % (0.0-2.0); Eosinophils % (auto) 1.6 % (0.0-7.0); Hematocrit 30.4 % (36.0-46.0); Hemoglobin 10.5 g/dL (12.2-16.2); Lymphocytes % (auto) 36.4 % (10.0-50.0); Mean Corpuscular Hemoglobin 36.7 pg (28.0-32.0); Mean Corpuscular Hgb Conc. 34.6 g/dL (32.0-36.0); Mean Corpuscular Volume 106.3 fL (80.0-100.0); Monocytes % (auto) 10.8 % (0.0-12.0); Neutrophils % (auto) 50.6 % (37.0-80.0); Nucleated Red Blood Cells % 0.9 %; Red Cell Distribution Width 21.7 % (11.8-14.3); Sodium 144 mmol/L (136-145)
[2024-04-28 07:02] LABS: Anion Gap 6 (5-15); Carbon Dioxide 29 mmol/L (20-31)
[2024-04-28 07:07] LABS: BUN/Creatinine Ratio 9.7 (10.0-20.0); Blood Urea Nitrogen 10 mg/dL (9-23)
[2024-04-28 07:12] LABS: Chloride 109 mmol/L (98-107); Glucose 123 mg/dL (74-106); Potassium 3.4 mmol/L (3.5-5.1)
[2024-04-28] MEDS: cefTRIAXone 1GM/50ML D5W 50 ML IV SCH (08:57)
[2024-04-28] MEDS: DOXYCYCLINE 100 MG TAB/CAP PO SCH (08:58)
[2024-04-28] MEDS ORDERED: NYSTATIN TOPICAL POWDER 15GM TOP SCH (22:00)
== END 2024-04-28 17:50 | disposition home or self-care (01) | DRG 637 ==
LOC: ER 22:51 → EDBD 22:51 → TELE 04-27 04:18 → TELE-WESTW 04-27 09:45
PROVIDERS: ADMIT Nurse Practitioner; ATTEND Student in an Organized Health Care Education/Training Program
DX: E11.649 Type 2 diabetes mellitus with hypoglycemia without coma (principal); G93.41 Metabolic encephalopathy; I21.A1 Myocardial infarction type 2; J96.21 Acute and chronic respiratory failure with hypoxia; I50.43 Acute on chronic combined systolic (congestive) and diastolic (congestive) heart failure; J15.69 Pneumonia due to other Gram-negative bacteria; J15.9 Unspecified bacterial pneumonia; E66.2 Morbid (severe) obesity with alveolar hypoventilation; D61.818 Other pancytopenia; Z68.43 Body mass index [BMI] 50.0-59.9, adult; N17.9 Acute kidney failure, unspecified; E11.65 Type 2 diabetes mellitus with hyperglycemia; K21.9 Gastro-esophageal reflux disease without esophagitis; I25.10 Atherosclerotic heart disease of native coronary artery without angina pectoris; E87.6 Hypokalemia; Z79.4 Long term (current) use of insulin; Z79.899 Other long term (current) drug therapy; Z86.73 Personal history of transient ischemic attack (TIA), and cerebral infarction without residual deficits; T50.995A Adverse effect of other drugs, medicaments and biological substances, initial encounter; Y92.89 Other specified places as the place of occurrence of the external cause
CPT/HCPCS: 36415; 71045; 80048; 80053; 80061; 82962; 83036; 83605; 83735; 83880; 84443; 84484; 85025; 85610; 85730; 87426; 87804; 93005; 93306; 97163; 99291; G0378; J1815; J2405